=== PATIENT | female | born 1960 | race African-American/Black ===

== ENCOUNTER 2024-09-05 10:23 | Outpatient (AMB) | payer MEDICARE, OTHER, SELFPAY ==
[2024-09-05 10:49] VITALS: BP 115/75; PULSE 87; RESP 16; TEMP 36.6; O2SAT 97; BMI 42.8
--- NOTE | 2024-09-05 10:49 | RHCORTHONT_ITS ---
Vital signs 09/05/24 10:49 Height 1.6 m Height Method Stated Weight 109.769 kg Weight Measurement Method Standing Scale BMI 42.8 BP 115/75 Blood Pressure Source Automatic Cuff Blood Pressure Location Left Upper Arm Position Sitting Respiration 16 Pulse 87 Pulse Source Monitor Temp 97.9 F Temp Source Temporal Artery Scan Pulse Oximetry (%) 97 Oxygen Delivery Method Room Air Med/Allergies Allergies & Medications Allergies Penicillins Allergy (Verified 09/05/24 10:50) Medication Reconciliation atorvastatin 10 mg tablet 10 mg PO QDAY 09/05/24 [History Confirmed 09/05/24] hydroxyzine HCl 25 mg tablet 25 mg PO QHS 09/05/24 [History Confirmed 09/05/24] meloxicam 7.5 mg tablet 7.5 mg PO QDAY #45 tabs 09/05/24 [Rx] Exam Exam Patient is in no acute distress and is cooperative with the examination today. Breathing is nonlabored. Patient has a normal mood and affect. Bilateral extremities were evaluated and demonstrates sensation intact to light touch. Palpable pedal pulses are present. No significant edema is present. Bilateral hips were examined. The patient has no pain with log roll of the hips. Internal rotation to 30 degrees and external rotation to 30 degrees is painless. Negative FADIR. Right knee was examined today. The right knee is in reasonable alignment. Range of motion from 0-120 degrees. Knee is stable to varus and valgus as well as AP translation with <5mm. Patient has a negative McMurrays. There is no pain with patellofemoral compression and no crepitus noted. The knee is nontender to palpation. Left knee was examined today. The left knee is in [varus] alignment. Range of motion from [0-115] degrees. Knee is stable to varus and valgus as well as AP translation with <5mm. Patient has a [negative] McMurrays. There is [no] pain with patellofemoral compression and [no] crepitus noted. The knee is [tender] to palpation [medially]. Assessment and Plan Problem List (1) Degenerative arthritis of knee, bilateral: Status: Acute Plan: Patient is a 64-year-old female with bilateral knee pain and bilateral knee arthritis. We Discussed nonoperative and operative options. I would like to see weightbearing x-rays to see how her knee looks. She has not had any injections previously. Advanced Care Planning Discussion Advance care planning discussed with:: patient Office Procedures GNS Level of Care Nursing/Assessment Patient Status: Initial/New Patient Nursing Assessment/Reassesment: Medication Reconciliation, Update PMH in EMR and Vital Signs Coordination of Care: Complex Care and Chronic Disease 1-5, Education Complex Pt/Fam and Consent,records obtained, informed consent New Patient Charge New Patient Point Assignment: 2858 New Patient Point Charge: SPECIMEN TECHNICIAN Level 3 ([id number]) MA Intake Visit Data Collection New Patient or Established: New Patient (never been to [facility]) Reason for Visit:: Lt knee pain Seen by Clinical Staff ONLY (RN/MA): No Verbal consent obtained for Telemed visit?: No Jewelry Sales Representative Required: No Hx Now: No Questionairres Past Medical History Past Medical History Have you ever been diagnosed with any of the following: Respiratory Problems Smoking: No Smoking Cessation Counseling: No Subjective Visit Visit for: new patient and knee Immunization / Flu Flu Vaccine in the Last 12 Months: Yes Flu Vaccine Exclusion Criteria: Already Received History of Present Illness Chief complaint: lt knee pain Date of injury / onset of symptoms: 4 years Personal History Occupation: retired Hobbies: walking BMI Counceling provided: Yes Additional comments: Patient is a pleasant 64-year-old female who presents today for evaluation of her bilateral knees. It is worse on the left. She was told that her knees are [id number]. She has not had any injections but Has tried ibuprofen and anti- inflammatories in the past. She also had a recent ankle replacement due to trauma Pain Pain level (0-10): 10 Pain duration: constant Pain location: inside (medial), outside (lateral), anterior and posterior Pain quality: sharp, dull, aching and shocking Pain timing: increases with activity Associated signs & symptoms: stiffness Ambulatory data Ambulatory device: none Walking distance (minutes): 30 Review of Systems Review of Systems: All systems negative unless otherwise noted in HPI.
== END 2024-09-05 11:23 | disposition home or self-care (01) ==
PROVIDERS: Supervising Provider Orthopaedic Surgery Adult Reconstructive Orthopaedic Surgery; Visit Provider Orthopaedic Surgery Adult Reconstructive Orthopaedic Surgery
DX: M17.0 Bilateral primary osteoarthritis of knee (principal); M25.562 Pain in left knee; M25.561 Pain in right knee
CPT/HCPCS: 99203; G0463